=== PATIENT | male | born 1960 | race Caucasian/White ===

== ENCOUNTER 2017-04-20 12:27 | Emergency (ER) | payer MEDICAID ==
[2017-04-20 13:20] LABS: BILIRUBIN,URINE NEGATIVE (NEGATIVE)
[2017-04-20 13:21] LABS: UA w/ MICROSCOPIC CHARGE YES
[2017-04-20] MEDS ORDERED: MELOXICAM 7.5 MG TABLET PO STA (13:27)
[2017-04-20 13:29] LABS: UR CULTURE IF IND INDICATED
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
--- NOTE | 2017-04-20 14:12 | XRAY Preliminary Report ---
Exam: XR Ribs w/PA Chest LT IMPRESSION: Normal chest and rib radiography. [facility] SITE ID: [id number]
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
[2017-04-20 14:43] LABS: BASOPHILS % (AUTO) 0.4 %; EOSINOPHILS # (AUTO) 0.1 10^3/uL (0.0-0.7); EOSINOPHILS % (AUTO) 0.8 %; HCT - HEMATOCRIT 47.5 % (42.0-52.0); HGB - HEMOGLOBIN 16.4 g/dL (14.0-18.0); LYMPHOCYTES # (AUTO) 1.5 10^3/uL (1.5-3.5); LYMPHOCYTES % (AUTO) 11.4 %; MEAN CORPUSCULAR HEMOGLOBIN 37.8 pg (27.0-31.0); MEAN CORPUSCULAR HGB CONC 34.6 g/dL (32.0-36.0); MEAN CORPUSCULAR VOLUME 109.3 fL (80.0-94.0); MEAN PLATELET VOLUME 7.5 fL (7.4-11.4); MONOCYTES # (AUTO) 1.1 10^3/uL (0.0-1.0); MONOCYTES % (AUTO) 8.4 %; NEUTROPHILS # (AUTO) 10.1 10^3/uL (1.5-6.6); RED BLOOD COUNT 4.34 10^6/uL (4.70-6.10); RED CELL DISTRIBUTION WIDTH 16.6 % (12.0-15.0); UNCORRECTED WHITE BLOOD COUNT 12.8 x10^3/uL; WHITE BLOOD COUNT 12.8 x10^3/uL (4.8-10.8)
[2017-04-20 14:53] LABS: ALBUMIN/GLOBULIN RATIO 0.9 (1.0-2.2); BILIRUBIN,TOTAL 2.3 mg/dL (0.2-1.0); CALCIUM 9.4 mg/dL (8.5-10.3); CREATININE 0.6 mg/dL (0.6-1.2); POTASSIUM 3.6 mmol/L (3.5-5.0); TOTAL PROTEIN 8.5 g/dL (6.7-8.2)
[2017-04-20 15:27] VITALS: BP 138/77
== END 2017-04-20 15:31 | disposition home or self-care (01) ==
LOC: ED 12:27
DX: S20.212A Contusion of left front wall of thorax, initial encounter (principal); Y09 Assault by unspecified means; N30.01 Acute cystitis with hematuria; R03.0 Elevated blood-pressure reading, without diagnosis of hypertension; F10.10 Alcohol abuse, uncomplicated; F17.200 Nicotine dependence, unspecified, uncomplicated
CPT/HCPCS: 36415; 71101; 80053; 81001; 83690; 85025; 87086; 99283; A9270; 81003

== ENCOUNTER 2017-05-05 14:27 | Outpatient (CLI) | payer MEDICAID ==
[2017-05-05 17:59] LABS: BILIRUBIN,URINE NEGATIVE (NEGATIVE)
[2017-05-05 18:23] LABS: UR CULTURE IF IND INDICATED
== END 2017-05-05 14:28 | disposition home or self-care (01) ==
LOC: LAB.R 14:27
PROVIDERS: ATTEND Nurse Practitioner Family
DX: R31.9 Hematuria, unspecified (principal)
CPT/HCPCS: 81001; 87070; 87086; 87205

== ENCOUNTER 2017-05-15 09:52 | Outpatient (CLI) | payer MEDICAID ==
[2017-05-15 18:41] LABS: PH,URINE 5.5 PH (5.0-7.5)
[2017-05-15 18:53] LABS: BASOPHILS # (AUTO) 0.1 10^3/uL (0.0-0.1); BASOPHILS % (AUTO) 0.5 %; EOSINOPHILS # (AUTO) 0.3 10^3/uL (0.0-0.7); EOSINOPHILS % (AUTO) 2.4 %; HCT - HEMATOCRIT 48.9 % (42.0-52.0); HGB - HEMOGLOBIN 16.7 g/dL (14.0-18.0); LYMPHOCYTES % (AUTO) 24.1 %; MEAN CORPUSCULAR HEMOGLOBIN 39.5 pg (27.0-31.0); MEAN PLATELET VOLUME 7.7 fL (7.4-11.4); MONOCYTES # (AUTO) 1.2 10^3/uL (0.0-1.0); NEUTROPHILS # (AUTO) 7.8 10^3/uL (1.5-6.6); NUCLEATED RED BLOOD CELLS AUTO 0.1 /100WBC; RED BLOOD COUNT 4.22 10^6/uL (4.70-6.10); RED CELL DISTRIBUTION WIDTH 16.3 % (12.0-15.0); UNCORRECTED WHITE BLOOD COUNT 12.4 x10^3/uL; WHITE BLOOD COUNT 12.4 x10^3/uL (4.8-10.8)
[2017-05-15 18:58] LABS: BILIRUBIN,URINE MODERATE (NEGATIVE); UA w/ MICROSCOPIC CHARGE YES
[2017-05-15 19:33] LABS: UR CULTURE IF IND INDICATED
[2017-05-15 19:45] LABS: BILIRUBIN,TOTAL 1.7 mg/dL (0.2-1.0); BUN - BLOOD UREA NITROGEN 15 mg/dL (6-20); CARBON DIOXIDE - CO2 19 mmol/L (21-32); CHLORIDE 102 mmol/L (101-111); CHOL/HDL RATIO 2.4 (<5.0); CHOLESTEROL 166 mg/dL; CREATININE 0.8 mg/dL (0.6-1.2); GFR - MDRD 100 (>89); GLUCOSE 68 mg/dL (70-100); HDL CHOLESTEROL 69 mg/dL; POTASSIUM 3.3 mmol/L (3.5-5.0); SODIUM 136 mmol/L (135-145); TOTAL PROTEIN 8.2 g/dL (6.7-8.2)
[2017-05-15 19:59] LABS: HEMOGLOBIN A1C 0.52 g/dL
[2017-05-15 20:19] LABS: THYROID STIMULATING HORMONE 1.65 uIU/mL (0.34-5.60)
[2017-05-15 22:28] LABS: LDL/HDL RATIO 1.2 (<3.6); TRIGLYCERIDES 61 mg/dL; VLDL CHOLESTEROL 12 mg/dL
== END 2017-05-15 09:53 | disposition home or self-care (01) ==
LOC: LAB.S 09:52
PROVIDERS: ATTEND Nurse Practitioner Family
DX: G62.9 Polyneuropathy, unspecified (principal); Z13.6 Encounter for screening for cardiovascular disorders; R31.9 Hematuria, unspecified; Z12.5 Encounter for screening for malignant neoplasm of prostate; Z78.9 Other specified health status; L98.9 Disorder of the skin and subcutaneous tissue, unspecified
CPT/HCPCS: 36415; 80053; 80061; 81001; 81003; 82607; 83036; 84153; 84443; 85025; 86803; 87086

== ENCOUNTER 2017-05-29 08:00 | Outpatient (CLI) | payer MEDICAID ==
[2017-05-29 18:47] LABS: BASOPHILS % (AUTO) 0.4 %; EOSINOPHILS # (AUTO) 0.3 10^3/uL (0.0-0.7); EOSINOPHILS % (AUTO) 3.5 %; HGB - HEMOGLOBIN 16.7 g/dL (14.0-18.0); LYMPHOCYTES # (AUTO) 2.3 10^3/uL (1.5-3.5); LYMPHOCYTES % (AUTO) 23.4 %; MEAN CORPUSCULAR HEMOGLOBIN 39.4 pg (27.0-31.0); MEAN CORPUSCULAR HGB CONC 33.5 g/dL (32.0-36.0); MEAN CORPUSCULAR VOLUME 117.7 fL (80.0-94.0); MEAN PLATELET VOLUME 7.6 fL (7.4-11.4); MONOCYTES # (AUTO) 1.3 10^3/uL (0.0-1.0); MONOCYTES % (AUTO) 13.6 %; NEUTROPHILS # (AUTO) 5.8 10^3/uL (1.5-6.6); NEUTROPHILS % (AUTO) 59.1 %; NUCLEATED RED BLOOD CELLS AUTO 0.1 /100WBC; RED BLOOD COUNT 4.25 10^6/uL (4.70-6.10); RED CELL DISTRIBUTION WIDTH 15.8 % (12.0-15.0); UNCORRECTED WHITE BLOOD COUNT 9.8 x10^3/uL; WHITE BLOOD COUNT 9.8 x10^3/uL (4.8-10.8)
[2017-05-29 19:17] LABS: ALBUMIN/GLOBULIN RATIO 0.8 (1.0-2.2); BILIRUBIN,TOTAL 1.1 mg/dL (0.2-1.0); CREATININE 0.7 mg/dL (0.6-1.2); POTASSIUM 4.2 mmol/L (3.5-5.0); TOTAL PROTEIN 8.1 g/dL (6.7-8.2)
[2017-05-29 20:22] LABS: PLATELET ESTIMATE, MANUAL NORMAL (130-450,000) (NORMAL); PLATELET MORPHOLOGY NORMAL APPEARANCE (NORMAL)
== END 2017-05-29 08:01 | disposition home or self-care (01) ==
LOC: LAB.S 08:00
PROVIDERS: ATTEND Nurse Practitioner Family
DX: R74.0 Nonspecific elevation of levels of transaminase and lactic acid dehydrogenase [LDH] (principal); D72.829 Elevated white blood cell count, unspecified
CPT/HCPCS: 36415; 80053; 81001; 85025; 87086

== ENCOUNTER 2017-05-30 08:00 | Outpatient (CLI) | payer MEDICAID ==
[2017-05-30 18:16] LABS: UR CULTURE IF IND INDICATED
[2017-05-30 18:18] LABS: BILIRUBIN,URINE NEGATIVE (NEGATIVE)
== END 2017-05-30 08:01 | disposition home or self-care (01) ==
LOC: LAB.R 08:00
PROVIDERS: ATTEND Nurse Practitioner Family
DX: N39.0 Urinary tract infection, site not specified (principal)
CPT/HCPCS: 81001; 87086

== ENCOUNTER 2017-06-13 11:21 | Outpatient (CLI) | payer MEDICAID ==
--- NOTE | 2017-06-13 17:40 | CT Report ---
CT ABDOMEN, CT PELVIS WITHOUT CONTRAST: 06/13/2017 CLINICAL HISTORY: Hematuria. TECHNIQUE: Axial images were obtained from the domes of the diaphragm through the pubic symphysis without contrast. Sagittal and coronal reformations performed. FINDINGS: Full characterization of the viscera is limited by the lack of IV and oral contrast. Minimal atelectasis is noted in both lung bases. The unopacified liver is noted to be heterogeneous. No discrete liver lesions are confirmed. Dependent stones (versus hyperdense sludge) noted in the gallbladder. There is no wall thickening nor ductal dilation. The unopacified spleen, pancreas, and adrenal glands are grossly normal. There are multiple bilateral nonobstructive caliceal stones measuring less than 3 mm. There is no hydronephrosis nor hydroureter. The bladder is incompletely distended, accentuating wall thickening. No intrabladder stones are confirmed. Moderate stool is retained in the colon. There are no dilated segments of small nor large bowel. The appendix is normal. There are a few diverticula in the descending and sigmoid colon. There is no evidence for active diverticulitis. Shotty mesenteric and retroperitoneal lymph nodes are present. There is no sheri adenopathy or free fluid. Scant atherosclerotic calcifications are incidental in the aorta and visceral arteries. There is no sheri aneurysmal dilation. Compression deformity of L5 appears chronic in nature. Multilevel disk and facet changes exist. There is no spondylolysis. IMPRESSION: 1. MULTIPLE BILATERAL NONOBSTRUCTIVE CALICEAL STONES MEASURING LESS THAN 3 MM IN MAXIMAL DIMENSION. NO OBSTRUCTIVE UROPATHY. NO EXPLANATION FOR LEFT FLANK PAIN AND HEMATURIA. 2. HETEROGENEOUS LIVER. FULL CHARACTERIZATION IS LIMITED BY LACK OF IV CONTRAST. 3. TINY DEPENDENT STONES VERSUS SLUDGE IN THE LUMEN OF THE GALLBLADDER. NO DUCTAL DILATION. In accordance with CT protocol optimization, one or more of the following dose reduction techniques were utilized for this exam: automated exposure control, adjustment of mA and/or KV based on patient size, or use of iterative reconstructive technique. JOB #: [id number] EXT JOB #: [id number] RAEANN
== END 2017-06-13 11:22 | disposition home or self-care (01) ==
LOC: DI 11:21
PROVIDERS: ATTEND Nurse Practitioner Family
DX: N20.0 Calculus of kidney (principal); R31.9 Hematuria, unspecified; R10.9 Unspecified abdominal pain
CPT/HCPCS: 74176